=== PATIENT | female | born 1990 | race Caucasian/White ===

== ENCOUNTER 2018-12-09 21:23 | Emergency (ER) | payer OTHER ==
[~2018-12-09] VITALS: Ht 162.6 cm; Wt 93.4 kg
[2018-12-09] MEDS ORDERED: FLEXERIL PO (21:59)
[2018-12-09] MEDS ORDERED: HYDROCODON-ACE1 EAC8 PO (21:59)
[2018-12-09 22:31] VITALS: BP 119/80
== END 2018-12-09 22:32 | disposition home or self-care (01) ==
LOC: M.ERS 21:23
DX: S86.811A Strain of other muscle(s) and tendon(s) at lower leg level, right leg, initial encounter (principal); Z98.890 Other specified postprocedural states; Z88.2 Allergy status to sulfonamides; X50.9XXA Other and unspecified overexertion or strenuous movements or postures, initial encounter; Y93.64 Activity, baseball; Y92.89 Other specified places as the place of occurrence of the external cause; Y99.8 Other external cause status

== ENCOUNTER 2019-05-19 11:23 | Emergency (ER) | payer OTHER ==
[~2019-05-19] VITALS: Ht 165.1 cm; Wt 83.9 kg
[~2019-05-19 11:23] MED LIST: FLEXERIL PO; HYDROCODON-ACE1 EAC8 PO
[2019-05-19] MEDS ORDERED: NOHOMEMEDICATIONS (12:07)
[2019-05-19] MEDS ORDERED: FLEXERIL PO (14:04)
[2019-05-19] MEDS ORDERED: MELOXICAM7.5 MG PO (14:04)
[2019-05-19] MEDS ORDERED: TYLENOL WITH CO1 TA1 PO (14:04)
[2019-05-19] MEDS ORDERED: VALIUM5 MG PO (14:04)
[2019-05-19 14:19] VITALS: BP 123/71
== END 2019-05-19 14:20 | disposition home or self-care (01) ==
LOC: M.ERS 11:23
DX: F43.0 Acute stress reaction (principal); M94.0 Chondrocostal junction syndrome [Tietze]; R10.84 Generalized abdominal pain; M79.641 Pain in right hand; R10.11 Right upper quadrant pain; Z88.2 Allergy status to sulfonamides; Z90.89 Acquired absence of other organs; Z90.49 Acquired absence of other specified parts of digestive tract; Z98.890 Other specified postprocedural states